=== PATIENT | female | born 1950 | race Caucasian/White ===

== ENCOUNTER 2024-06-11 07:31 | Outpatient (RCR) | payer MEDICARE, BC, SELFPAY | END 2024-06-11 23:59 | disposition home or self-care (01) | LOC: RPT 07:31 | PROVIDERS: ATTENDING PHYSICIAN Physician Assistant; FAMILY PHYSICIAN Internal Medicine | DX: R15.1 Fecal smearing (principal); M62.89 Other specified disorders of muscle; Z73.6 Limitation of activities due to disability | CPT/HCPCS: 97110; 97140; 97162; 97530 ==

== ENCOUNTER 2024-07-22 06:45 | Outpatient (RCR) | payer MEDICARE, BC, SELFPAY | END 2024-07-22 23:59 | disposition home or self-care (01) | LOC: RPT 06:45 | PROVIDERS: ATTENDING PHYSICIAN Physician Assistant; FAMILY PHYSICIAN Internal Medicine | DX: R15.1 Fecal smearing (principal); M62.89 Other specified disorders of muscle; Z73.6 Limitation of activities due to disability | CPT/HCPCS: 97014; 97112; 97140; 97530 ==

== ENCOUNTER 2024-08-06 06:43 | Outpatient (RCR) | payer MEDICARE, BC, SELFPAY | END 2024-08-06 23:59 | disposition home or self-care (01) | LOC: RPT 06:43 | PROVIDERS: ATTENDING PHYSICIAN Physician Assistant; FAMILY PHYSICIAN Internal Medicine | DX: R15.1 Fecal smearing (principal); M62.89 Other specified disorders of muscle; Z73.6 Limitation of activities due to disability | CPT/HCPCS: 97014; 97112; 97530 ==

== ENCOUNTER 2024-09-25 17:50 | Outpatient (RCR) | payer MEDICARE, BC, SELFPAY | END 2024-09-25 23:59 | disposition home or self-care (01) | LOC: RPT 17:50 | PROVIDERS: ATTENDING PHYSICIAN Physician Assistant; FAMILY PHYSICIAN Internal Medicine | DX: R15.1 Fecal smearing (principal); M62.89 Other specified disorders of muscle; Z73.6 Limitation of activities due to disability | CPT/HCPCS: 97014; 97112; 97530 ==

== ENCOUNTER 2024-10-23 06:29 | Outpatient (RCR) | payer MEDICARE, BC, SELFPAY | END 2024-10-23 23:59 | disposition home or self-care (01) | LOC: RPT 06:29 | PROVIDERS: ATTENDING PHYSICIAN Physician Assistant; FAMILY PHYSICIAN Internal Medicine | DX: R15.1 Fecal smearing (principal); M62.89 Other specified disorders of muscle; Z73.6 Limitation of activities due to disability | CPT/HCPCS: 97110; 97112; 97530 ==

== ENCOUNTER 2024-11-20 17:52 | Outpatient (RCR) | payer MEDICARE, BC, SELFPAY | END 2024-11-20 23:59 | disposition home or self-care (01) | LOC: RPT 17:52 | PROVIDERS: ATTENDING PHYSICIAN Physician Assistant; FAMILY PHYSICIAN Internal Medicine | DX: R15.1 Fecal smearing (principal); M62.89 Other specified disorders of muscle; Z73.6 Limitation of activities due to disability | CPT/HCPCS: 97110; 97112; 97530 ==

== ENCOUNTER 2024-12-05 17:58 | Outpatient (RCR) | payer MEDICARE, BC, SELFPAY | END 2024-12-05 23:59 | disposition home or self-care (01) | LOC: RPT 17:58 | PROVIDERS: ATTENDING PHYSICIAN Physician Assistant; FAMILY PHYSICIAN Internal Medicine | DX: R15.1 Fecal smearing (principal); M62.89 Other specified disorders of muscle; Z73.6 Limitation of activities due to disability | CPT/HCPCS: 97110; 97112; 97530 ==

== ENCOUNTER 2025-01-01 16:02 | Outpatient (RCR) | payer MEDICARE, BC, SELFPAY | END 2025-01-02 07:07 | disposition home or self-care (01) | LOC: RPT 16:02 | PROVIDERS: ATTENDING PHYSICIAN Physician Assistant; FAMILY PHYSICIAN Internal Medicine | DX: R15.1 Fecal smearing (principal); M62.89 Other specified disorders of muscle; Z73.6 Limitation of activities due to disability | CPT/HCPCS: 97110; 97530 ==